=== PATIENT | male | born 1945 | race Caucasian/White ===

== ENCOUNTER → 2016-12-12 | Outpatient (CLI) | payer OTHER ==
[~2016-12-12] MED LIST: REGADENOSON 0.4 MG/5 ML SYRINGE ONE
== END | disposition home or self-care (01) ==
LOC: CFH 09:44
PROVIDERS: ATTEND Internal Medicine Cardiovascular Disease
DX: I08.3 Combined rheumatic disorders of mitral, aortic and tricuspid valves (principal); I48.91 Unspecified atrial fibrillation; I37.1 Nonrheumatic pulmonary valve insufficiency; I51.7 Cardiomegaly; M79.602 Pain in left arm
CPT/HCPCS: 78452; 93017; 93306; A9502; J2785

== ENCOUNTER → 2017-12-31 | Outpatient (CLI) | payer OTHER | END | disposition home or self-care (01) | LOC: CVU 07:03 | PROVIDERS: ATTEND Internal Medicine Cardiovascular Disease | DX: I48.91 Unspecified atrial fibrillation (principal); I08.3 Combined rheumatic disorders of mitral, aortic and tricuspid valves; I10 Essential (primary) hypertension | CPT/HCPCS: 93306 ==

== ENCOUNTER → 2018-08-07 | Outpatient (CLI) | payer MEDICARE | END | disposition home or self-care (01) | LOC: RAD 09:13 | PROVIDERS: ATTEND Nurse Practitioner Family | DX: R07.9 Chest pain, unspecified (principal) | CPT/HCPCS: 71046 ==

== ENCOUNTER → 2018-08-26 | Outpatient (CLI) | payer MEDICARE ==
[~2018-08-26] MED LIST changes: +OMNIPAQUE 350 MG/ML, 100ML BOTTLE ONE; -REGADENOSON 0.4 MG/5 ML SYRINGE ONE
== END | disposition home or self-care (01) ==
LOC: CFH 09:11
PROVIDERS: ATTEND Nurse Practitioner Family
DX: J34.1 Cyst and mucocele of nose and nasal sinus (principal); R06.00 Dyspnea, unspecified
CPT/HCPCS: 70491; Q9967

== ENCOUNTER → 2019-01-15 | Outpatient (CLI) | payer MEDICARE | END | disposition home or self-care (01) | LOC: CFH 09:30 | PROVIDERS: ATTEND Internal Medicine Cardiovascular Disease | DX: I08.3 Combined rheumatic disorders of mitral, aortic and tricuspid valves (principal); I11.9 Hypertensive heart disease without heart failure; I48.2 Chronic atrial fibrillation; E78.5 Hyperlipidemia, unspecified | CPT/HCPCS: 93306 ==

== ENCOUNTER → 2020-10-25 | Outpatient (CLI) | payer MEDICARE ==
[~2020-10-25] MED LIST changes: -OMNIPAQUE 350 MG/ML, 100ML BOTTLE ONE; +REGADENOSON 0.4 MG/5 ML SYRINGE ONE
== END | disposition home or self-care (01) ==
LOC: CFH 07:33
PROVIDERS: ATTEND Internal Medicine Cardiovascular Disease
DX: I08.3 Combined rheumatic disorders of mitral, aortic and tricuspid valves (principal); I48.91 Unspecified atrial fibrillation; E78.5 Hyperlipidemia, unspecified; I42.9 Cardiomyopathy, unspecified; I10 Essential (primary) hypertension
CPT/HCPCS: 78452; 93017; 93306; A9502; J2785

== ENCOUNTER → 2020-12-09 | Outpatient (CLI) | payer MEDICARE | END | disposition home or self-care (01) | LOC: CFH 14:32 | PROVIDERS: ATTEND Family Medicine | DX: N28.1 Cyst of kidney, acquired (principal); R31.29 Other microscopic hematuria; B02.9 Zoster without complications | CPT/HCPCS: 74176 ==

== ENCOUNTER 2021-02-05 09:53 | Outpatient (CLI) | payer MEDICARE ==
[2021-02-08] MEDS ORDERED: DIGO125T85 PO (18:55)
[2021-02-08] MEDS ORDERED: LISI-167 PO (18:55)
[2021-02-08] MEDS ORDERED: WARF2TAB99 PO (18:55)
[2021-02-08] MEDS ORDERED: ROSU40TA PO (18:55)
[2021-02-08] MEDS ORDERED: METO-93 PO (18:55)
== END 2021-02-05 23:59 | disposition home or self-care (01) ==
LOC: RAD 09:53
PROVIDERS: ATTEND Physician Assistant Medical
DX: M79.605 Pain in left leg (principal)
CPT/HCPCS: 93970

== ENCOUNTER 2021-04-05 14:19 | Outpatient (CLI) | payer MEDICARE ==
[~2021-04-05 14:19] MED LIST changes: +AMIO200T42 PO; +CALC1TAB68 PO; +CARV3.1212 PO; +CARV6.2512 PO; +DIGO125T85 PO; +LISI-167 PO; +METO-93 PO; -REGADENOSON 0.4 MG/5 ML SYRINGE ONE; +ROSU40TA PO; +TAMS-11 PO; +WARF2TAB99 PO
[2021-04-05] MEDS ORDERED: OMNIPAQUE 350 MG/ML, 150 ML BOTTLE ONE (14:59)
== END 2021-04-05 23:59 | disposition home or self-care (01) ==
LOC: CFH 14:19
PROVIDERS: ATTEND Physician Assistant
DX: K80.20 Calculus of gallbladder without cholecystitis without obstruction (principal); N40.0 Benign prostatic hyperplasia without lower urinary tract symptoms; N28.1 Cyst of kidney, acquired; K46.9 Unspecified abdominal hernia without obstruction or gangrene
CPT/HCPCS: 74178; Q9967